=== PATIENT | female | born 1965 | race Two or more races ===

== ENCOUNTER 2023-03-31 01:39 | Emergency (ER) | payer SELFPAY ==
[~2023-03-31] VITALS: Ht 160 cm; Wt 68.2 kg
[2023-03-31 01:40] VITALS: BP 177/98
[2023-03-31] MEDS ORDERED: AML5T PO (04:13)
== END 2023-03-31 04:32 | disposition home or self-care (01) ==
LOC: ER 01:39
DX: M25.562 Pain in left knee (principal); I16.0 Hypertensive urgency; Z79.899 Other long term (current) drug therapy
CPT/HCPCS: 73562

== ENCOUNTER 2023-06-30 05:59 | Emergency (ER) | payer MEDICAID ==
[~2023-06-30] VITALS: Ht 162.6 cm; Wt 67.0 kg
[~2023-06-30 05:59] MED LIST: AML5T PO
[2023-06-30] MEDS ORDERED: OLME40TA78 PO (07:38)
[2023-06-30] MEDS ORDERED: CEFD300C2 PO (07:38)
[2023-06-30] MEDS ORDERED: NAP500T PO (07:38)
[2023-06-30] MEDS ORDERED: TRAM50TA2 PO (07:38)
[2023-06-30] MEDS ORDERED: cloNIDine HCL 0.1 MG TAB PO ONE (07:45)
[2023-06-30] MEDS ORDERED: cloNIDine HCL 0.1 MG TAB ONE (07:45)
[2023-06-30 10:55] VITALS: BP 148/94; PULSE 74; RESP 19; TEMP 98.4; O2SAT 96
== END 2023-06-30 11:04 | disposition home or self-care (01) ==
LOC: ER 05:59
DX: K08.89 Other specified disorders of teeth and supporting structures (principal); R22.0 Localized swelling, mass and lump, head; I10 Essential (primary) hypertension; Z79.899 Other long term (current) drug therapy